=== PATIENT | female | born 1965 | race Two or more races ===

== ENCOUNTER 2024-03-20 06:17 | Day surgery (SDC) | payer BC, SELFPAY ==
[2024-03-20 13:30] VITALS: BMI 49.2
[2024-03-20 13:31] VITALS: BMI 49.2
[2024-03-20 13:35] VITALS: BP 165/92
[2024-03-20 13:46] LABS: Glucose - Point of Care 148 mg/dl (70-99)
[2024-03-20 15:00] VITALS: BP 110/67
[2024-03-20 15:15] VITALS: BP 125/65
== END 2024-03-20 15:27 | disposition home or self-care (01) ==
LOC: SDS 06:17
PROVIDERS: ATTENDING PHYSICIAN Surgery
DX: Z12.11 Encounter for screening for malignant neoplasm of colon (principal); Z86.010 Personal history of colon polyps; Z80.0 Family history of malignant neoplasm of digestive organs
CPT/HCPCS: G0105; 82962